=== PATIENT | male | born 1955 | race Caucasian/White ===

== ENCOUNTER 2021-11-16 09:15 | Day surgery (SDC) | payer OTHER ==
[2021-11-16] MEDS ORDERED: ACETAMINOPHEN 500 MG TABLET (FP) PO ONE (10:00)
[2021-11-16] MEDS ORDERED: diphenhydrAMINE HCL 25 MG CAPSULE (FP) PO ONE (10:00)
[2021-11-16] MEDS ORDERED: methylPREDNISolone NA SUCC 125 MG/2 ML VIAL IVPB ONE (10:15)
[2021-11-16] MEDS ORDERED: RITUXIMAB-ABBS 1,000 MG in DEXTROSE 5%-WATER - 400 ML IVPB ONE (10:30)
[2021-11-16 12:10] VITALS: BP 121/74; PULSE 87; TEMP 98.6
== END 2021-11-16 15:50 | disposition home or self-care (01) ==
LOC: JINFUSION 09:15 → J7W 09:16 → JINFUSION 15:40
PROVIDERS: ATTEND Internal Medicine Rheumatology
DX: M06.9 Rheumatoid arthritis, unspecified (principal)
CPT/HCPCS: 96361; 96413; 96415; Q5115

== ENCOUNTER 2021-12-06 09:45 | Day surgery (SDC) | payer OTHER ==
[~2021-12-06 09:45] MED LIST: ACETAMINOPHEN 500 MG TABLET (FP) PO ONE; RITUXIMAB-ABBS 1,000 MG in DEXTROSE 5%-WATER - 400 ML IVPB ONE; diphenhydrAMINE HCL 25 MG CAPSULE (FP) PO ONE; methylPREDNISolone NA SUCC 125 MG/2 ML VIAL IVPUSH ONE
[2021-12-06 17:12] VITALS: BP 112/80; PULSE 82; TEMP 97.6
== END 2021-12-06 15:59 | disposition home or self-care (01) ==
LOC: JINFUSION 09:45 → J7W 09:52 → JINFUSION 15:59
PROVIDERS: ATTEND Internal Medicine Rheumatology
DX: M06.9 Rheumatoid arthritis, unspecified (principal)
CPT/HCPCS: 96367; 96413; 96415; Q5115

== ENCOUNTER 2022-05-25 08:59 | Day surgery (SDC) | payer OTHER ==
[2022-05-25] MEDS ORDERED: ACETAMINOPHEN 500 MG TABLET (FP) PO ONE (09:00)
[2022-05-25] MEDS ORDERED: methylPREDNISolone NA SUCC 125 MG/2 ML VIAL IVPUSH ONE (09:00)
[2022-05-25] MEDS ORDERED: diphenhydrAMINE HCL 25 MG CAPSULE (FP) PO ONE (09:00)
[2022-05-25] MEDS ORDERED: RITUXIMAB-ABBS 1,000 MG in DEXTROSE 5%-WATER - 400 ML IVPB ONE (09:30)
[2022-05-25] MEDS ORDERED: METHYLPREDNISOLONE NA SUCC 100 MG in SODIUM CHLORIDE 50 ML IVPB ONE (09:45)
[2022-05-25 10:06] LABS: BASO % 0.7 % (0-2.0); EOS % 1.2 % (0-4.5); HEMATOCRIT 46.9 % (35.4-49); HEMOGLOBIN 15.5 GM/dL (11.7-16.9); LYMPH % 16.7 % (8-40); MCH 30.6 pg (25.7-33.7); MEAN CELL VOLUME 92.7 fl (80-96); MEAN PLT VOLUME 8.2 fl (7.5-11.1); MONO % 7.7 % (3.8-10.2); NEUT % 73.7 % (42.8-82.8); PLATELET COUNT 280 10^3/uL (134-434); RBC 5.06 M/mm3 (4.00-5.60); RDW 16.1 % (11.9-15.9); WHITE BLOOD COUNT 6.2 K/mm3 (4.0-10.0)
[2022-05-25 10:27] LABS: ALBUMIN 3.1 g/dl (3.4-5.0); BLOOD UREA NITROGEN 17.3 mg/dL (7-18); CALCIUM 9.3 mg/dL (8.5-10.1)
[2022-05-25 10:30] LABS: CREATININE 0.8 mg/dL (0.55-1.3)
[2022-05-25 10:32] LABS: BILIRUBIN,TOTAL 0.4 mg/dL (0.2-1); TOT PROT 7.2 g/dl (6.4-8.2)
[2022-05-25 17:17] VITALS: BP 126/82; PULSE 96; RESP 18; TEMP 97.8
== END 2022-05-25 15:45 | disposition home or self-care (01) ==
LOC: JINFUSION 08:59
PROVIDERS: ATTEND Internal Medicine Rheumatology
DX: M06.9 Rheumatoid arthritis, unspecified (principal)
CPT/HCPCS: 36415; 80053; 85025; 85651; 96367; 96413; 96415; Q5115

== ENCOUNTER 2022-06-08 08:57 | Day surgery (SDC) | payer OTHER ==
[2022-06-08] MEDS ORDERED: METHYLPREDNISOLONE NA SUCC 100 MG in SODIUM CHLORIDE 50 ML IVPB ONE (09:00)
[2022-06-08] MEDS ORDERED: ACETAMINOPHEN 500 MG TABLET (FP) PO ONE (09:00)
[2022-06-08] MEDS ORDERED: diphenhydrAMINE HCL 25 MG CAPSULE (FP) PO ONE (09:00)
[2022-06-08] MEDS ORDERED: RITUXIMAB-ABBS 1,000 MG in DEXTROSE 5%-WATER - 400 ML IVPB ONE (10:00)
[2022-06-08 15:06] VITALS: TEMP 98.7
[2022-06-08 15:23] VITALS: BP 120/84; PULSE 93; RESP 18
== END 2022-06-08 15:15 | disposition home or self-care (01) ==
LOC: JINFUSION 08:57
PROVIDERS: ATTEND Internal Medicine Rheumatology
PROC: 3E03305 Introduction of Other Antineoplastic into Peripheral Vein, Percutaneous Approach (ICD-10-PCS; principal; 2022-06-08)
PROC: 3E033GC Introduction of Other Therapeutic Substance into Peripheral Vein, Percutaneous Approach (ICD-10-PCS; 2022-06-08)
DX: M06.9 Rheumatoid arthritis, unspecified (principal)
CPT/HCPCS: 96367; 96413; 96415; Q5115

== ENCOUNTER 2022-11-24 09:17 | Day surgery (SDC) | payer OTHER ==
[2022-11-24] MEDS ORDERED: ACETAMINOPHEN 500 MG TABLET (FP) PO ONE (10:00)
[2022-11-24] MEDS ORDERED: diphenhydrAMINE HCL 25 MG CAPSULE (FP) PO ONE (10:00)
[2022-11-24] MEDS ORDERED: METHYLPREDNISOLONE NA SUCC 100 MG in SODIUM CHLORIDE 50 ML IVPB ONE (10:00)
[2022-11-24] MEDS ORDERED: RITUXIMAB-ABBS 1,000 MG in DEXTROSE 5%-WATER - 400 ML IVPB ONE (10:30)
[2022-11-24 17:08] VITALS: RESP 18; TEMP 98.6
[2022-11-24 17:18] VITALS: BP 125/77; PULSE 107
== END 2022-11-24 14:45 | disposition home or self-care (01) ==
LOC: JCHEMO 09:17 → J7W 09:17 → JCHEMO 14:45
PROVIDERS: ATTEND Internal Medicine Rheumatology
DX: M06.9 Rheumatoid arthritis, unspecified (principal)
CPT/HCPCS: 96375; 96413; 96415; Q5115

== ENCOUNTER 2022-12-08 09:42 | Day surgery (SDC) | payer OTHER ==
[~2022-12-08 09:42] MED LIST changes: +METHYLPREDNISOLONE NA SUCC 100 MG in SODIUM CHLORIDE 50 ML IVPB ONE; -RITUXIMAB-ABBS 1,000 MG in DEXTROSE 5%-WATER - 400 ML IVPB ONE; -methylPREDNISolone NA SUCC 125 MG/2 ML VIAL IVPUSH ONE
[2022-12-08] MEDS ORDERED: RITUXIMAB-ABBS 1,000 MG in DEXTROSE 5%-WATER - 400 ML IVPB ONE (10:00)
[2022-12-08 15:26] VITALS: RESP 18
[2022-12-08 17:18] VITALS: BP 122/74; PULSE 99; TEMP 98
== END 2022-12-08 15:15 | disposition home or self-care (01) ==
LOC: JCHEMO 09:42
PROVIDERS: ATTEND Internal Medicine Rheumatology
DX: M06.9 Rheumatoid arthritis, unspecified (principal)
CPT/HCPCS: 96375; 96413; 96415; Q5115

== ENCOUNTER 2023-06-27 09:19 | Day surgery (SDC) | payer OTHER ==
[2023-06-27] MEDS ORDERED: ACETAMINOPHEN 500 MG TABLET (FP) PO ONE (10:00)
[2023-06-27] MEDS ORDERED: METHYLPREDNISOLONE NA SUCC 100 MG in SODIUM CHLORIDE 50 ML IVPB ONE (10:00)
[2023-06-27] MEDS ORDERED: diphenhydrAMINE HCL 25 MG CAPSULE (FP) PO ONE (10:00)
[2023-06-27] MEDS ORDERED: RITUXIMAB-ABBS 1,000 MG in DEXTROSE 5%-WATER - 400 ML IVPB ONE (10:30)
[2023-06-27 17:24] VITALS: TEMP 97.5
[2023-06-27 17:29] VITALS: BP 124/73; PULSE 109; RESP 20
== END 2023-06-27 14:35 | disposition home or self-care (01) ==
LOC: JINFUSION 09:19 → J7W 09:23 → JINFUSION 14:35
PROVIDERS: ATTEND Internal Medicine Rheumatology
DX: M06.9 Rheumatoid arthritis, unspecified (principal)
CPT/HCPCS: 96375; 96413; 96415; Q5115

== ENCOUNTER 2024-01-04 09:33 | Day surgery (SDC) | payer OTHER ==
[2024-01-04] MEDS: METHYLPREDNISOLONE NA SUCC 100 MG in SODIUM CHLORIDE 50 ML IVPB ONE (10:40)
[2024-01-04] MEDS: diphenhydrAMINE HCL 25 MG CAPSULE (FP) PO ONE (10:42)
[2024-01-04] MEDS: ACETAMINOPHEN 500 MG TABLET (FP) PO ONE (10:42)
[2024-01-04] MEDS ORDERED: diphenhydrAMINE HCL 25 MG CAPSULE (FP) PO ONE (10:45)
[2024-01-04] MEDS ORDERED: ACETAMINOPHEN 500 MG TABLET (FP) PO ONE (10:45)
[2024-01-04 14:04] VITALS: RESP 20
[2024-01-04] MEDS: methylPREDNISolone NA SUCC 125 MG/2 ML VIAL IVPUSH ONE (14:17)
[2024-01-04] MEDS: FAMOTIDINE 20 MG/50 ML IVPB 20 MG/50 ML MG IVPB ONE (14:22)
[2024-01-04] MEDS: SODIUM CHLORIDE 0.9% 500 ML INFUS.BAG IV ONE (14:22)
[2024-01-04] MEDS: methylPREDNISolone NA SUCC 40 MG/1 ML VIAL IVPUSH ONE (14:23)
[2024-01-04 17:08] VITALS: BP 130/80; PULSE 100; TEMP 98.4
== END 2024-01-04 16:55 | disposition home or self-care (01) ==
LOC: JINFUSION 09:33 → J7W 09:39 → JINFUSION 16:55
PROVIDERS: ATTEND Internal Medicine Rheumatology
DX: M06.9 Rheumatoid arthritis, unspecified (principal)
CPT/HCPCS: 96367; 96375; 96413; 96415; Q5115